=== PATIENT | female | born 1995 ===

== ENCOUNTER 2023-12-30 09:32 | Outpatient (CLI) | payer MEDICAID, SELFPAY ==
--- NOTE | 2023-12-30 09:38 | MR_ITS ---
WS: [id number] MRI HEAD WITH CONTRAST TECHNIQUE: Sagittal T1, T2 axial, T2 axial FLAIR, axial susceptibility weighted imaging, axial diffus ion weighted images, and coronal T2 images were obtained. Pre and post-T1 axial and post T1 coronal i mages. ADC and FSPGR images. Pituitary protocol utilized with dynamic pituitary imaging CLINICAL INFORMATION: PITUITARY INSUFFICIENCY COMPARISON: None. FINDINGS: Some images degraded by motion. No evidence of restricted diffusion to suggest acute ischemia. Ventricular system and basal cisterns are patent. No suspicious intracranial signal abnormalities considering motion artifact. Normal poste rior fossa. Normal vascular flow voids at the skull base. No extra-axial fluid collections. No eviden ce of mass or mass effect. Paranasal sinuses and mastoid air cells are well aerated. No hemosiderin on the susceptibility weighted images. Normal optic chiasm and pituitary infundibulum. Temporal lobes and hippocampal formations are normal in appearance. No abnormal intracranial enhance ment. Normal dural venous sinuses. Dynamic pituitary imaging demonstrates no evidence of microadenoma. No evidence of intrasellar or sup rasellar lesion. Normal homogeneous pituitary enhancement. Normal cavernous sinuses and Meckel's cave . MR/MR pituitary wo/w con* [id number] IMPRESSION: 1. Normal homogeneous pituitary enhancement. No evidence of microadenoma. 2. No evidence of intrasellar or suprasellar mass. Normal optic chiasm and pit uitary infundibulum. 3. No other suspicious findings.
[2023-12-30] MEDS: gadobenate dimeglumine 20 mL vial 14 ML IV (11:12)
== END 2023-12-30 09:33 | disposition home or self-care (01) ==
LOC: RAD 09:35
PROVIDERS: PCP Nurse Practitioner; Visit Provider Nurse Practitioner
DX: E23.0 Hypopituitarism (principal)
CPT/HCPCS: 70553